=== PATIENT | female | born 1950 | race African-American/Black ===

== ENCOUNTER 2017-10-27 19:11 | Emergency (ER) | payer MEDICARE, OTHER ==
[~2017-10-27] VITALS: Ht 160 cm; Wt 68.0 kg
[2017-10-27 19:25] VITALS: BP 143/65
--- NOTE | 2017-10-27 19:29 | PHYS DOC ---
Adult General Chief Complaint Chief Complaint: MECHANICAL FALL HPI HPI Patient is a 67 year old female presents to the emergency department with complaints of left ankle pain. Patient states she was walking [place] of [place] today when she twisted her ankle. She states she did not fall. States she's been ambulatory and extremity since incident. She's here now seeking evaluation of the pain in the left ankle. Review of Systems Review of Systems Constitutional: Denies fever or chills [] Eyes: Denies change in visual acuity, redness, or eye pain [] HENT: Denies nasal congestion or sore throat [] Respiratory: Denies cough or shortness of breath [] Cardiovascular: No additional information not addressed in HPI [] GI: Denies abdominal pain, nausea, vomiting, bloody stools or diarrhea [] : Denies dysuria or hematuria [] Musculoskeletal: Left ankle pain Integument: Denies rash or skin lesions [] Neurologic: Denies headache, focal weakness or sensory changes [] Endocrine: Denies polyuria or polydipsia [] All other systems were reviewed and found to be within normal limits, except as documented in this note. Allergies Allergies Allergies Coded Allergies Type Severity Reaction Last Updated Verified No Known Drug Allergies 10/27/17 No Physical Exam Physical Exam Constitutional: Well developed, well nourished, no acute distress, non-toxic appearance. [] Skin: Warm, dry, no erythema, no rash. [] Extremities: Lower extremity exam: Left knee exam unremarkable. Mild amount of swelling and tenderness over the lateral malleolus. Achilles tendon is intact. Left foot exam unremarkable. Neurovascular intact distally. She does have full range of motion of the ankle without apparent increase in pain. Current Patient Data Vital Signs Vital Signs Date Time Temp Pulse Resp B/P (MAP) Pulse Ox O2 Delivery O2 Flow Rate FiO2 10/27/17 19:25 98.1 85 16 99 Room Air 98.1 EKG EKG [] Radiology/Procedures Radiology/Procedures Left ankle x-ray reviewed, no acute bony abnormality. Patient's placed in an [employer] nursing staff.[] Neurovascular intact distal. Patient tolerated well. Course & Med Decision Making Course & Med Decision Making Pertinent Labs and Imaging studies reviewed. (See chart for details) [] Dragon Disclaimer Dragon Disclaimer This electronic medical record was generated, in whole or in part, using a voice recognition dictation system. Departure Departure Impression: Primary Impression: Left ankle sprain Disposition: HOME, SELF-CARE Condition: STABLE Referrals: ISAEL MORENO MD (PCP) Patient Instructions: Ankle Sprain, RICE - Routine Care for Injuries Additional Instructions: Ibuprofen [id number] as labeled and is indicated for pain management. Please wear the ankle splint as much as possible for 2 weeks and then just during the day for 2 weeks when you're ambulating about. Problem Qualifiers Primary Impression: Left ankle sprain Encounter type: initial encounter Involved ligament of ankle: unspecified ligament Qualified Codes: S93.402A - Sprain of unspecified ligament of left ankle, initial encounter ALEX MCGREGOR WAFER SLICER Oct 27, 2017 19:29
--- NOTE | 2017-10-28 08:23 | RAD ---
Left ankle, 3 views, 10/27/2017: History: Fall, ankle pain and swelling No ankle fracture or dislocation is identified. There is a small cortical avulsion fracture along the dorsal aspect of the navicular bone, probably recent. There is moderate diffuse soft tissue swelling about the ankle. IMPRESSION: Small cortical avulsion fracture along the dorsal aspect of the navicular bone.
== END 2017-10-27 19:51 | disposition home or self-care (01) ==
LOC: ER 19:11
DX: S93.402A Sprain of unspecified ligament of left ankle, initial encounter (principal); X58.XXXA Exposure to other specified factors, initial encounter; Y93.01 Activity, walking, marching and hiking; Y92.89 Other specified places as the place of occurrence of the external cause; Y99.8 Other external cause status
CPT/HCPCS: 29515; 73610; 99284-25

== ENCOUNTER → 2021-06-13 | Outpatient (CLI) | payer MEDICARE ==
--- NOTE | 2021-06-13 17:22 | CARD ---
MR#: [id number] Date of Study: 06/13/2021 Ordering Physician: ANA LAURA OLEARY, Referring Physician: ANA LAURA OLEARY, Tech: Marco A Byrnes [facility] APPROVED REPORT EXAM: Two-dimensional and M-mode echocardiogram with Doppler and color Doppler. Other Information Quality : GoodHR: 74bpm Rhythm : NSR INDICATION Murmur 2D DIMENSIONS Left Atrium(2D)3.6 (1.6-4.0cm)IVSd0.9 (0.7-1.1cm) Aortic Root(2D)3.5 (2.0-3.7cm)LVDd4.1 (3.9-5.9cm) LVOT Diameter2.0 (1.8-2.4cm)PWd0.9 (0.7-1.1cm) LVDs2.7 (2.5-4.0cm)FS (%) 34.1 % SV46.6 ml Aortic Valve AoV Peak Fabian.114.3cm/sAoV VTI24.5cm AO Peak GR.5.2mmHgLVOT Peak Fabian.78.2cm/s LVOT VTI 18.48cmAO Mean GR.3mmHg PARKER (VMAX)1.06wi9VCQ (VTI)2.48cm2 Mitral Valve MV E Brltbybh15.4cm/sMV DECEL [id number] MV A Phwegrce56.2cm/sMV [id number] E/A Ratio0.9MVA (PHT)3.81cm2 TDI E/Lateral E'10.2E/Medial E'10.3 Pulmonary Valve PV Peak Qftktvvx56.1cm/sPV Peak Grad.4mmHg Pulmonary Vein S1 Usfsnbpn14.6cm/sD2 Lzisscwt95.5cm/s LEFT VENTRICLE The left ventricle is normal size. There is normal left ventricular wall thickness. The left ventricu lar systolic function is normal. LV ejection fraction is 50 to 55%. There is normal LV segmental wall motion. Transmitral Doppler flow pattern is Grade I-abnormal relaxation pattern. No left ventricle t hrombus noted on this study. There is no ventricular septal defect visualized. There is no left ventr icular aneurysm. There is no mass noted in the left ventricle. RIGHT VENTRICLE The right ventricle is normal size. There is normal right ventricular wall thickness. The right ventr icular systolic function is normal. ATRIA The left atrium is moderately dilated. The right atrium size is normal. The interatrial septum is int act with no evidence for an atrial septal defect or patent foramen ovale as noted on 2-D or Doppler i maging. AORTIC VALVE The aortic valve is normal in structure and function. Doppler and Color Flow revealed no significant aortic regurgitation. There is no significant aortic valvular stenosis. There is no aortic valvular v egetation. MITRAL VALVE The mitral valve is normal in structure and function. There is no evidence of mitral valve prolapse. There is no mitral valve stenosis. Doppler and Color-flow revealed mild mitral regurgitation. TRICUSPID VALVE The tricuspid valve is normal in structure and function. Doppler and Color Flow revealed trace tricus pid regurgitation. There is no tricuspid valve prolapse or vegetation. There is no tricuspid valve st enosis. PULMONIC VALVE The pulmonary valve is normal in structure and function. Trivial pulmonic regurgitation There is no p ulmonic valvular stenosis. GREAT VESSELS The aortic root is normal in size. The ascending aorta is normal in size. The pulmonary artery is nor mal. The IVC is normal in size and collapses >50% with inspiration. PERICARDIAL EFFUSION There is no pleural effusion. There is no evidence of significant pericardial effusion. Critical Notification Critical Value: No <Conclusion> The left ventricle is normal size. The left ventricular systolic function is normal. LV ejection fraction is 50 to 55%. Doppler and Color Flow revealed no significant aortic regurgitation. There is no significant aortic valvular stenosis. Doppler and Color-flow revealed mild mitral regurgitation. Doppler and Color Flow revealed trace tricuspid regurgitation. Signed by : Ana Laura Oleary MD Electronically Approved : 06/13/2021 17:21:34
== END ==
LOC: ECHO 09:35
PROVIDERS: ATTEND Internal Medicine Cardiovascular Disease
DX: I08.8 Other rheumatic multiple valve diseases (principal); R01.1 Cardiac murmur, unspecified
CPT/HCPCS: 93306